=== PATIENT | male | born 1995 | race African-American/Black ===

== ENCOUNTER → 2020-04-07 13:02 | Outpatient (CLI) | payer BC, SELFPAY | PROVIDERS: PCP Family Medicine; Visit Provider Nurse Practitioner Family | DX: Z03.818 Encounter for observation for suspected exposure to other biological agents ruled out (principal) | CPT/HCPCS: U0003 ==

== ENCOUNTER 2020-05-15 09:00 | Emergency (ER) | payer BC, SELFPAY ==
[2020-05-15 09:15] VITALS: PULSE 73; RESP 18; O2SAT 100; BMI 22.4
[2020-05-15 09:19] VITALS: BP 141/83
--- NOTE | 2020-05-15 09:23 | HMH.EDUTC ---
[facility] [place] Disposition Clinical Impression: Screening for STD (sexually transmitted disease) Disposition: Home, Self-Care Condition on Discharge: Good Instructions: Facts About Sexually Transmitted Infections, How to Detect and Treat STDs, Chlamydia: The Silent STD Additional Instructions: NO sexual activity until your results are back and negative Make sure to follow up with your family doctor for the test result and further treatment in the next You test results should be back within the next 5-7 days Return if needed Straight to ER if any life threatening symptoms Referrals: Zenon Israel MD [Primary Care Provider] - As needed Time of Disposition: : Medical Decision Making - Odin Inquiry Pt receiving controlled substance: No Odin was queried for this patient: No Vital Signs: 05/15/20 09:15 05/15/20 09:19 05/15/20 09:46 Temperature 98.1 F Temperature Source Oral Pulse Rate 73 Pulse Rate [Radial] 73 Respiratory Rate 18 18 Blood Pressure 141/83 H Blood Pressure [Right Arm] 141/83 H Blood Pressure Mean [Right Arm] 102 Blood Pressure Source Automatic Cuff Blood Pressure Source [Right Arm] Automatic Cuff Blood Pressure Position Sitting Blood Pressure Position [Right Arm] Sitting 02 Sat by Pulse Oximetry 100 Oxygen Delivery Method Room Air Room Air Orders (Tests/Meds): ORDERS Category Date Time Status HIV Panel [id number] Stat Lab 05/15/20 09:18 Ordered Hepatitis Panel (4) Stat Lab 05/15/20 09:18 Ordered Medical Decision Narrative: While awaiting lab to come and draw blood for HIV and Hepatitis panel patient states that he cannot wait on lab and had to go so he left without completing testing Lab notified did collect urine for GC/Chlam [facility] [place] HPI - General Stated complaint: check up Time Seen by Provider: 05/15/20 09:23 Mode of Arrival: Ambulatory Source of Information: Patient Limitations: No Limitations Description of Symptoms (Recalled from Triage Doc. by RN): wants tested for all stds and a flu shot HEENT Symptoms (Recalled from RN notes): No Resp Symptoms (Recalled from RN notes): No Skin Symptoms (Recalled from RN notes): No MS Symptoms (Recalled from RN notes): No Functional Status (Recalled from RN notes): wnl - History of Present Illness Provider Complaint: Patient states that he came in today to get checked Chlamydia and Gonorrhea along with HIV and hepatitis States that he also wants to get a flu shot if available States that he is not having any symptoms but wanted to stay on top of it because he has had unprotected sex - Related Data Previous Rx's Medication Instructions Recorded Azithromycin [Zithromax 500mg Tab] 1,000 mg PO ONCE 1 Days #2 tab 03/04/19 Ciprofloxacin HCl [Ciprofloxacin 500 mg PO BID 5 Days #10 tab 03/04/19 500mg Tab] Allergies Allergy/AdvReac Type Severity Reaction Status Date / Time No Known Allergies Allergy Verified 03/04/19 09:22 - Worker's Comp Is this a Worker's Comp case?: No [facility] History - Hepatitis A Screen Drug use history?: No High risk sexual behaviors?: No History of sexually transmitted infection?: No Currently employed?: No Childcare worker?: No Do you have indoor plumbing?: Yes Do you have electricity?: Yes Attestation statement:: This patient has been screened for Hepatitis A risk factors. I have reviewed the patient's past medical history: Yes Medical History: Denies:: Anxiety, Depression, Diabetes Mellitus Type 1, Diabetes Mellitus Type 2, Hypertension Other Surgeries: Yes: No Previous Surgery - Social History Smoking Status: Current every day smoker Tobacco Type: cigarettes # Packs/Day (cigarettes): 1 Alcohol Intake: never Alcohol Intake Frequency:: holidays/special occasions only Substance Use Type: marijuana Occupational Status: employed Housing: house - Psychiatric History Pschychiatric History:: Denies:: Anxiety, Depression ROS Obtained: Yes All systems reviewed
[2020-05-15 09:46] VITALS: BP 141/83; PULSE 73; RESP 18; TEMP 36.7; O2SAT 100
--- NOTE | 2020-05-15 09:47 | PC.NURSE ---
Patient decided to go ahead and leave instead of waiting for lab to draw his blood. Lab notified x 2.
[2020-05-17 11:50] LABS: Neisseria gonorrhoeae, NAA Negative (Negative)
== END 2020-05-15 09:49 | disposition home or self-care (01) ==
PROVIDERS: Emergency Provider Nurse Practitioner; PCP Family Medicine
DX: Z11.3 Encounter for screening for infections with a predominantly sexual mode of transmission (principal); F17.210 Nicotine dependence, cigarettes, uncomplicated
CPT/HCPCS: 87491; 87591; 99202

== ENCOUNTER 2020-11-14 17:37 | Emergency (ER) | payer BC, SELFPAY ==
[2020-11-14 17:47] VITALS: BP 129/86; PULSE 84; RESP 16; TEMP 36.6; O2SAT 100; BMI 22.4
--- NOTE | 2020-11-14 17:54 | HMH.EDUTC ---
[facility] [place] Disposition Clinical Impression: Bacterial conjunctivitis of left eye Disposition: Home, Self-Care Condition on Discharge: Good Instructions: Amoxicillin and Clavulanic Acid, Erythromycin Ophthalmic Additional Instructions: Use Erythromycin one ribbon application four times daily every six hours Take oral antibiotics Follow up first thing in the morning with Dr Ramírez at [facility] tell them you was seen in the [facility] and we spoke with Dr Ramírez and he wanted you to come in Straight to the ER tonight if any worsening of problems with the left eye Do not wear contacts Prescriptions: Amoxicillin/Potassium Clav [Augmentin 875-125 Tablet] 1 tab PO Q12H 10 Days #20 tab Transmission Status: Received by [employer] # Erythromycin Base [Erythromycin 3.5gm opth oinment] 1 applicatio EYE-LEFT Q6H #1 oint...g. Transmission Status: Received by [employer] [facility] # Referrals: Darby Bland MD [Primary Care Provider] - As needed Dr Dick Ramírez [Other] (Follow up tomorrow morning) Time of Disposition: 18:17 Medical Decision Making - Odin Inquiry Pt receiving controlled substance: No Odin was queried for this patient: No Vital Signs: 11/14/20 17:47 11/14/20 18:23 Temperature 97.8 F 98 F Temperature Source Oral Pulse Rate 99 H Pulse Rate [Right] 84 Respiratory Rate 16 16 Blood Pressure 119/82 Blood Pressure [Right Arm] 129/86 Blood Pressure Mean [Right Arm] 100 Blood Pressure Source [Right Arm] Automatic Cuff Blood Pressure Position [Right Arm] Sitting 02 Sat by Pulse Oximetry 100 Orders (Tests/Meds): ED MEDICATIONS Discontinued Medications Generic Name Dose Route Start Last Admin Trade Name Mikey PRN Reason Stop Dose Admin Erythromycin 1 gm 11/14/20 18:21 11/14/20 18:22 Erythromycin Base 1 Gm Oint...G. OP 11/14/20 18:22 1 gm ONCE ONE Administration Tobramycin Sulfate 0.05 ml 11/14/20 18:08 Tobramycin Opthalmic Solution 5ml OP 11/14/20 18:09 ONCE ONE - Physician Consults Physician Consulted: Dr Ramírez Time: 18:04 Reason -: Opthalmology Eval/Care Comment/Response: Spoke with Dr Ramírez and informed him of findings on left eye, swollen yellowish colored drainage from the eye and patient reports itchy irritation and denies injury or being hit or foreign body in eye. Advsied to start patient on Medical Decision Narrative: Dr Howard came to [facility] and viewed and recommended eye exam with numbing drops and antibiotics and patient declined Spoke with patient again about exam and Patient declined eye exam with drops and caruso lamp Dr Ramírez informed that patient declined eye exam in [facility] and he advised to start on oral Augmentin, erythromycin ointment in eye every 6 hours and follow up in the clinic in the morning if no improvement [facility] [place] HPI - General Stated complaint: poss left eye infection Time Seen by Provider: 11/14/20 17:54 Mode of Arrival: Ambulatory Source of Information: Patient Limitations: No Limitations Description of Symptoms (Recalled from Triage Doc. by RN): yesterday pts eye started swelling and irritating him. no injury and nothing in his eye that he is aware of. pts L eye is swollen perioribital edema, eye is blood red, draining yellow green. somewhat painful and itches. HEENT Symptoms (Recalled from RN notes): Yes (L eye swollen with discharge) Resp Symptoms (Recalled from RN notes): No Skin Symptoms (Recalled from RN notes): No MS Symptoms (Recalled from RN notes): No Functional Status (Recalled from RN notes): na - History of Present Illness Provider Complaint: Patient state that a couple days ago his eyes was dry and feeling itchy States that he rubbed them and then he woke up with some swelling in the left eye, yellowish drainage and matting States that he hasnt had any eye injury and denies FB States that he may have an std in not sure - Related Data Previous Rx's Medication Instructions Recorded Azithromycin [Zithromax 500
[2020-11-14 18:23] VITALS: BP 119/82; PULSE 99; RESP 16; TEMP 36.6
== END 2020-11-14 18:27 | disposition home or self-care (01) ==
PROVIDERS: Emergency Provider Nurse Practitioner; PCP Family Medicine
DX: H10.32 Unspecified acute conjunctivitis, left eye (principal); F17.210 Nicotine dependence, cigarettes, uncomplicated
CPT/HCPCS: 99202; G0463

== ENCOUNTER 2020-11-15 01:55 | Emergency (ER) | payer BC, SELFPAY ==
[2020-11-15 01:57] VITALS: BP 146/88; PULSE 90; RESP 14; TEMP 37.1; O2SAT 99; BMI 21.9
[2020-11-15 02:08] VITALS: BMI 21.9
--- NOTE | 2020-11-15 02:44 | HMH.EDEYEP ---
ED Disposition Clinical Impression: Orbital cellulitis on left Periorbital cellulitis Qualifiers: Laterality: left Qualified Code(s): L03.213 - Periorbital cellulitis Disposition: Xfer Short-Term Hosp Condition on Discharge: Good Referrals: Darby Bland MD [Primary Care Provider] - - Critical Care Critical Care Time: No Attestation: On 11/15/20, the high probability of a clinically significant, sudden or life threatening deterioration of the following system(s) required my full and direct attention, intervention and personal management. The time I documented below is in addition to time spent performing reported procedures but includes the following listed in this critical care notation. Medical Decision Making - Medical Records Medical records reviewed: Yes: I reviewed the patient's medical records. - Odin Inquiry Pt receiving controlled substance: No Vital Signs: 11/15/20 01:57 11/15/20 04:20 Temperature 98.7 F Temperature Source Oral Pulse Rate 77 Pulse Rate [Right] 90 Respiratory Rate 14 Blood Pressure 132/93 H Blood Pressure [Right Arm] 146/88 H Blood Pressure Mean 105 Blood Pressure Mean [Right Arm] 107 02 Sat by Pulse Oximetry 99 100 - Lab Data Lab results reviewed: Yes: I reviewed the patient's lab results. Lab Results 11/15/20 02:45: WBC 10.4, RBC 4.49 L, Hgb 15.2, Hct 45.5, MCV 101.4 H, MCH 34.0 H, MCHC 33.5, RDW 12.8, Plt Count 214, MPV 7.2 L, Neut % (Auto) 75.0, Lymph % (Auto) 17.3, [place] % (Auto) 6.4, Eos % (Auto) 1.1, Baso % (Auto) 0.2, Neut # (Auto) 7.8, Lymph # (Auto) 1.8, [place] # (Auto) 0.7, Eos # (Auto) 0.1, Baso # (Auto) 0.0 11/15/20 02:45: C-Reactive Protein 5.7 H, Procalcitonin 0.046 11/15/20 02:45: ESR 7 11/15/20 02:45: Sodium 137, Potassium 3.5, Chloride 105, Carbon Dioxide 27, Anion Gap 8.5, BUN 5 L, Creatinine 0.80, Estimated Creat Clear 158, Estimated GFR 118, Est GFR ( Amer) 143, Glucose 103 H, Calcium 9.7, Total Bilirubin 1.3, AST 37, ALT 17, Alkaline Phosphatase 80, Total Protein 7.2, Albumin 4.5, Globulin 2.7, Albumin/Globulin Ratio 1.7 Result diagrams: 11/15/20 02:45 11/15/20 02:45 Orders (Tests/Meds): ED MEDICATIONS Generic Name Dose Route Start Last Admin Trade Name Freq PRN Reason Stop Dose Admin Ampicillin Sodium/Sulbactam 100 mls @ 200 mls/hr 11/15/20 02:45 11/15/20 02:50 Sodium 3 gm/ Sodium Chloride IV 11/29/20 02:44 200 mls/hr Q8H TIMOTHY Administration Protocol Sodium Chloride 1,000 mls @ 999 mls/hr 11/15/20 03:15 11/15/20 03:07 Sod Chlor 0.9% 1000ml Bag IV 11/15/20 04:15 999 mls/hr .Q1H1M TIMOTHY Administration Discontinued Medications Generic Name Dose Route Start Last Admin Trade Name Freq PRN Reason Stop Dose Admin Iopamidol 75 ml 11/15/20 03:56 11/15/20 03:57 Iopamidol-370 (76%);100ml Bottle IV 11/15/20 03:57 75 ml ONCE ONE Administration Ketorolac Tromethamine 30 mg 11/15/20 02:45 11/15/20 02:50 Ketorolac 30mg/Ml Vial IV 11/15/20 02:46 30 mg ONCE ONE Administration Methylprednisolone Sodium Succinate 125 mg 11/15/20 02:45 11/15/20 02:50 Methylprednisolone Sod Succ 125mg Vial IV 11/15/20 02:46 125 mg ONCE ONE Administration Sodium Chloride 10 ml 11/15/20 03:56 11/15/20 03:56 Sodium Chloride 0.9% 10ml Syr (Rad Only) IV 11/15/20 03:57 10 ml ONCE ONE Administration ORDERS Category Date Time Status CT facial bones w con Stat Cat Scan 11/15/20 03:05 Taken - CT Data CT Scan: Other (facial ) Time Received: 04:[address] Reviewed: Yes: I have viewed the radiologist's interpretation Preliminary Findings: Abnormal (cezar-orbital and orbial cellulitis with prob abscess ) - Physician Consults Physician Consulted: - dr rodriguez Reason -: Transfer to another facilty Medical Decision Narrative: will need eye exam as planned this am and will proceed from there Eye Problem HPI - General Chief complaint: Eye Problems Stated complaint: seen
[2020-11-15 02:55] VITALS: BP 154/85; PULSE 75; O2SAT 99
--- NOTE | 2020-11-15 03:05 | CT_ITS ---
PROCEDURE: CT FACIAL BONES W CON CLINICAL HISTORY: lt swollen eye Left eye swelling and draining COMPARISON: No exams were available for comparison TECHNIQUE: Axial images obtained with sagittal and coronal reformats. All CT scans at the facility use one or more dose reduction, viz: automated exposure control, ma/kV adjustment per patient size (including targeted exams where dose is matched to indication, i.e. head), or iterative reconstruction technique. FINDINGS: There is skin thickening and subcutaneous edema involving the preseptal left orbit consistent with preseptal periorbital cellulitis. A small curvilinear fluid collection measuring up to 3 mm in thickness with peripheral enhancement overlies the central and inferolateral aspect of the left globe containing a small focus of gas consistent with orbital abscess. This extends deep to the tarsal plate consistent with postseptal involvement. The intraconal muscles have an unremarkable appearance. There is subcutaneous edema involving the soft tissues in the left frontal and malar region consistent with cellulitis. Mild mucosal thickening involves the maxillary sinuses with small bilateral retention cysts. Scattered small nodes are present in the neck. There is prominence of the palatine tonsils. No peritonsillar abscess evident. There is mild bilateral exophthalmos. IMPRESSION: 1. Periorbital and orbital cellulitis with post preseptal and postseptal involvement. 2. Small curvilinear left orbital abscess in the central and inferior lateral aspect of the left globe deep to the tarsal plate measuring up to 3 mm in thickness. 3. Left facial cellulitis. Dictated by: Klever Pires MD 11/15/2020 06:30 Klever Pires MD in [place] 11/15/2020 06:30
[2020-11-15 03:30] VITALS: BP 157/92; PULSE 77; O2SAT 99
[2020-11-15 03:31] LABS: Basophils % 0.2 % (0.1-2.0); Eosinophils # 0.1 K/mm3 (0.0-0.4); Eosinophils % 1.1 % (0.1-12.0); Hematocrit 45.5 % (42.0-52.0); Hemoglobin 15.2 g/dL (14.1-18.0); Lymphocytes # 1.8 K/mm3 (0.7-4.5); Lymphocytes % 17.3 % (10-50); Mean Corpuscular HGB Conc 33.5 g/dL (31.8-35.4); Mean Corpuscular Volume 101.4 fl (80-94); Mean Platelet Volume 7.2 fl (7.4-10.4); Monocytes # 0.7 K/mm3 (0.1-1.0); Monocytes % 6.4 % (1.7-9.3); Neutrophils # 7.8 K/mm3 (1.8-7.8); Platelet Count 214 K/mm3 (142-424); Red Blood Count 4.49 M/mm3 (4.60-6.20); Red Cell Distribution Width 12.8 % (11.5-17.5); White Blood Count 10.4 K/mm3 (4.8-10.8)
[2020-11-15 03:41] LABS: C-Reactive Protein 5.7 mg/L (0-4)
[2020-11-15 03:44] LABS: Chloride 105 mmol/L (98-107); Potassium 3.5 mmoL/L (3.5-5.1); Sodium 137 mmol/L (136-145)
[2020-11-15 03:46] LABS: Blood Urea Nitrogen 5 mg/dl (9-20)
[2020-11-15 03:47] LABS: Alanine Aminotransferase 17 U/L (12-78); Albumin Level 4.5 g/dl (3.5-5.0); Albumin/Globulin Ratio 1.7 (1.1-1.8); Alkaline Phosphatase 80 U/L (38-126); Anion Gap 8.5 mEq/L (5-15); Aspartate Amino Transferase 37 U/L (17-59); Bilirubin,Total 1.3 mg/dl (0.2-1.3); Calcium 9.7 mg/dl (8.4-10.2); Carbon Dioxide 27 mmol/L (22.0-30.0); Creatinine Clearance Estimated 158 mL/min (50-200); Estimated Glomerular Filt Rate 118 ml/min (>60); GFR (African American) 143 ML/MIN (>60); Globulin 2.7 g/dL (1.3-3.2); Glucose 103 mg/dl (74-100); Total Protein,Serum 7.2 g/dl (6.3-8.2)
[2020-11-15 03:55] LABS: Procalcitonin 0.046 ng/mL (0.0-2.0)
[2020-11-15 04:05] LABS: Erythrocyte Sedimentation Rate 7 mm/hr (0-15)
[2020-11-15 04:20] VITALS: BP 132/93; PULSE 77; O2SAT 100
--- NOTE | 2020-11-15 04:26 | PC.NURSE ---
dr cat on phone with [facility]
--- NOTE | 2020-11-15 04:37 | PC.NURSE ---
dr cat on phone with Dr Black
--- NOTE | 2020-11-15 04:39 | PC.NURSE ---
Dr Black accepted pt to [facility]
--- NOTE | 2020-11-15 05:00 | PC.NURSE ---
[facility] notified that pt is ready for transfer to [facility]
--- NOTE | 2020-11-15 05:00 | PC.NURSE ---
report given to Nat LYNNE at er
[2020-11-15 05:06] LABS: Coronavirus 19 IgG Antibody Negative (Negative); Coronavirus 19 IgM Antibody Negative (Negative)
[2020-11-15 05:08] VITALS: BP 132/93; PULSE 77; RESP 16; TEMP 37; O2SAT 99
== END 2020-11-15 05:24 | disposition short-term general hospital (02) ==
PROVIDERS: Emergency Provider Emergency Medicine; PCP Family Medicine
DX: H05.012 Cellulitis of left orbit (principal); F17.210 Nicotine dependence, cigarettes, uncomplicated; Z01.84 Encounter for antibody response examination
CPT/HCPCS: 70487; 80053; 84145; 85025; 85651; 86140; 86328; 96375; 99284; Q9967